=== PATIENT | female | born 1980 | race Caucasian/White ===

== ENCOUNTER 2023-05-25 09:50 | Outpatient (CLI) | payer BC, SELFPAY ==
[2023-05-25 08:47] LABS: Absolute Basophil Count 0.03 10^3/uL (0.0-0.2); Absolute Neutrophil Count 2.01 10^3/uL (1.2-6.7); Basophils % 0.8; Eosinophils % 2.8; HCT 39.8 % (36.0-46.0); Lymphocytes % 33.9; MCH 31.3 pg (27.0-33.0); MCHC 32.7 % (32.0-36.0); MCV 96 fL (80-95); Monocytes % 5.6; Neutrophils % 56.9; Platelet Count 216 10^3/uL (130-400); RBC 4.15 10^6/uL (3.93-5.22); RDW 12.7 % (11.7-14.6); RDW-SD 45.2 fL; WBC 3.54 10^3/uL (4.4-10.8)
[2023-05-25 09:19] LABS: ALT 20 U/L (14-59); AST 13 U/L (15-37); Albumin 3.6 g/dL (3.4-5.0); Alkaline Phosphatase 66 U/L (46-116); Anion Gap 7.9 mmol/L (3-11); BUN 8 mg/dL (7-18); Bilirubin, Total 0.5 mg/dL (0.2-1.0); CO2 28.1 mmol/L (21.0-32.0); CREATININE 0.9 mg/dL (0.55-1.02); Calcium 8.9 mg/dL (8.5-10.1); Calculated LDL 115 mg/dL (<100); Chloride 105 mmol/L (98-107); Cholesterol 213 mg/dL (<200); Estimated GFR 80.34 (mL/min/1.73m2); Glucose 91 mg/dL (74-106); HDL Cholesterol 86 mg/dL (40-60); Potassium 4.3 mmol/L (3.5-5.1); Sodium 141 mmol/L (136-145); Total Protein 7.2 g/dL (6.4-8.2); Triglyceride 63 mg/dL (<150)
[2023-05-25 19:38] LABS: HIV-1/2 Ag & Ab Screen Negative (Negative)
[2023-05-25 19:40] LABS: Hepatitis C Ab w Rflx HCV PCR Negative (Negative)
== END 2023-05-25 09:51 | disposition home or self-care (01) ==
LOC: LBO 09:50
PROVIDERS: PCP Nurse Practitioner Family; Visit Provider Nurse Practitioner Family
DX: Z13.220 Encounter for screening for lipoid disorders (principal); Z11.4 Encounter for screening for human immunodeficiency virus [HIV]; R10.10 Upper abdominal pain, unspecified
CPT/HCPCS: 36415; 80053; 80061; 86803; 87389; 85025

== ENCOUNTER 2023-05-26 08:00 | Day surgery (SDC) | payer BC, SELFPAY ==
--- NOTE | 2023-05-25 12:03 | PDOC.DSDIS_ITS ---
Date of service: 05/26/23 Time of Service: 10:08 Discharge Plan Disposition Patient Disposition: Home Condition: Good Discharge Details Reason For Visit: stomach & colon scopes Attending Provider: Katia Mcdowell Primary Care Provider: Santiago Cramer Home Meds and New Rx's Prescriptions: Discontinued polyethylene glycol 3350 17 gram/dose powder 238 g PO ONCE Qty: 238 0RF Rx Instructions: take per colonoscopy instructions bisacodyl [Dulcolax (bisacodyl)] 5 mg tablet,delayed release (DR/EC) 5 mg PO ONCE Qty: 4 0RF Rx Instructions: take per colonoscopy instructions No Action No Known Home Meds Discharge Instructions Additional Instructions: DSU Colonoscopy Post- Op Instructions Instructions for Everyone who is given Anesthesia: For your safety, please do the following for the next twenty-four (24) hours: *Do Not operate a motor vehicle (car, truck, motorcycle, etc.) *Do Not drink alcoholic beverages or use any recreational drugs for the first 24 hours or while taking pain medications. The medications in your body may have a reaction that can be dangerous. *Do Not make any important decisions or sign any important papers. Findings: Stomach and colon scopes were normal today Biopsies were taken today Follow up: -My office will send you a copy of the biopsy results in 2 to 3 weeks time -HIDA scan to follow-up on gallbladder functioning. The hospital will call you to schedule this appointment. 1. No lifting over 20 pounds or strenuous activity for the first 24 hours after your procedure. After 24 hours there are no restrictions on your activity but you may feel fatigued for a few days. 2. After you arrive home you may have a light meal and return to your normal diet as you can tolerate it without feeling sick to your stomach. 3. You may have a bloated, gaseous feeling in your belly (abdomen) after a colonoscopy. Passing gas and belching will help. Walking or lying down on your left side with your knees flexed may relieve the discomfort. Call the office at [phone] (Office) or [phone] (Hospital) right away if you notice any of the following: a.Vomiting of blood or ?coffee ground stools?. b.Rectal bleeding 1Tbsp, blood clots or continuous bleeding. c.Severe belly (abdominal) pain. d.A hard distended belly (abdomen) and an inability to pass gas. 4. Please don?t expect to have a normal BM (bowel movement) for 2-3 days after your procedure. 5. If there are questions regarding the findings of your procedure, please contact your doctor 6. If you are unable to contact your doctor with a problem, contact the hospital at [phone]. 7. Continue all your regular medications unless directed otherwise. I understand the above instructions and have no questions. Signature of Patient or Adult Escort Name of Responsible Adult Escort Signature of Nurse Date/Time Activity:: see above Diet:: see above Discharge Orders Discharge Orders: Discharge Order (Routine); Ordered 05/26/23 Ordered By: Katia Mcdowell DS: Diagnosis Discharge Diagnosis (1) Upper abdominal pain: Status: Acute (2) Epigastric pain: Status: Acute Asessment and Plan: Patient is seen and examined after they are endoscopy.? Patient has minimal sore throat.? They have been able to tolerate liquids.? They do not have any nausea vomiting.? They are not having any chest pain or shortness of breath.? They have been able to pass gas and are not having any abdominal pain or distention.? They have not vomited any blood.? The vital signs have been stable-see nursing notes. We discussed findings on their endoscopy. We reviewed the importance of lifestyle modification-see discharge instructions We reviewed any new medications that the patient may be prescribed-see discharge instructions Patient will either be sent a letter with the biopsy results or follow-up in the office-see discharge instructions. Patient was given explicit instructions to follow-up regarding post endoscopy- refer to discharge Patient verbalized understanding and discharged in stable and satisfactory condition.? See nursing notes.
--- NOTE | 2023-05-26 08:04 | W.ANESPRE ---
General Info Date of Service Date Performed: 05/26/23 Height: 5 ft 7 in Weight: 65.317 kg Body Mass Index (BMI): 22.5 Surgical Procedure: Operation Date: 05/26/23 09:05 Proposed Procedure Side Surgeon p Colonoscopy/Gastroscopy Katia Mcdowell, DO Meds Allergies and Home Medications Allergies Allergy/AdvReac Type Severity Reaction Status Date / Time No Known Allergies Allergy Verified 05/25/23 13:22 Home Medication Medication Instructions Recorded Unknown [No Known Home Meds] 05/25/23 Current Visit Medications: Current Medications Generic Name Dose Route Start Last Admin Trade Name Freq PRN Reason Stop Dose Admin Hyoscyamine Sulfate 0.125 mg 05/26/23 00:02 Hyoscyamine 0.125 Mg Sl/Oral/Chew SL 06/25/23 00:01 DIRECTED PRN Ringer's Solution 1,000 mls @ 80 mls/hr 05/26/23 06:00 IV 06/24/23 23:59 [facility] IV Miscellaneous Supplies 1 each 05/26/23 06:00 Iv Access IV 06/24/23 23:59 DIRECTED BRISA Ondansetron HCl 4 mg 05/26/23 00:02 Ondansetron 4 Mg/2 Ml Vial IVP 06/25/23 00:01 Q4H PRN PRN Nausea / Vomiting Sodium Chloride 0 ml 05/26/23 06:00 Normal Saline Flush 10 Ml Syr IV 06/24/23 23:59 PRN PRN Sodium Chloride 0 ml 05/26/23 06:00 Normal Saline 10 Ml Vial IJ 06/24/23 23:59 DIRECTED PRN Sterile Water 0 ml 05/26/23 06:00 Water,Injection,Sterile 10 Ml Vial IJ 06/24/23 23:59 DIRECTED PRN PFSH Active Problems Active Problems: Problem Status Onset Code Epigastric pain R10.13 Colon cancer screening Z12.11 Achilles tendon pain M76.60 Right shoulder pain M25.511 Upper abdominal pain R10.10 Tobacco Smoking/Tobacco Use Status: Never Passive smoking exposure: No Second hand exposure: No Alcohol Alcohol Intake: current Alcohol intake frequency: holidays/special occasions only Alcohol type: wine Substance Use Substance use: Never Substance use type: does not use Vital Signs and Lab Results Lab Results Blood Type / Crossmatch: No Data to Display Complete Blood Count: White Blood Count 3.54 10^3/uL (4.4-10.8) L 05/25/23 08:37 Red Blood Count 4.15 10^6/uL (3.93-5.22) 05/25/23 08:37 Hemoglobin 13.0 g/dL (11.2-15.7) 05/25/23 08:37 Hematocrit 39.8 % (36.0-46.0) 05/25/23 08:37 Platelet Count 216 10^3/uL (130-400) 05/25/23 08:37 Complete Metabolic Panel: Sodium 141 mmol/L (136-145) 05/25/23 08:37 Potassium 4.3 mmol/L (3.5-5.1) 05/25/23 08:37 Chloride 105 mmol/L (98-107) 05/25/23 08:37 Carbon Dioxide 28.1 mmol/L (21.0-32.0) 05/25/23 08:37 BUN 8 mg/dL (7-18) 05/25/23 08:37 Creatinine 0.9 mg/dL (0.55-1.02) 05/25/23 08:37 Est GFR (CKD-EPI 2020) 80.34 (mL/min/1.73m2) 05/25/23 08:37 Calcium 8.9 mg/dL (8.5-10.1) 05/25/23 08:37 Albumin 3.6 g/dL (3.4-5.0) 05/25/23 08:37 Glucose 91 mg/dL (74-106) 05/25/23 08:37 Liver Function Panel: Alanine Aminotransferase (ALT/SGPT) 20 U/L (14-59) 05/25/23 08:37 Aspartate Amino Transf (AST/SGOT) 13 U/L (15-37) L 05/25/23 08:37 Coagulation Panel: No Data to Display Cardiac Panel: No Data to Display Arterial Blood Gas: No Data to Display Venous Blood Gas: No Data to Display Pancreas Panel: No Data to Display Thyroid Panel: No Data to Display Infectious Disease: HIV (1&2) Ag and Ab, 4th Generation Negative (Negative) 05/25/23 08:37 Hepatitis C Antibody Negative (Negative) 05/25/23 08:37 Blood Cultures: No Data to Display Toxicology Panel: No Data to Display Panel: No Data to Display Anesthesia Assessment and Plan Anesthesia History Personal History: No History of Anesthesia Complications Family History: No Family History of Anesthesia Complications Exercise Tolerance Exercise Tolerance: Metabolic Equivalents>4 Pertinent Negatives Pertinent Negatives: No Symptoms of GERD, No Major Cardiovascular Symptoms or Complaints, No Major Pulmonary Symptoms or Complaints and No History of CVA/TIA Cardiac & Pulmonary Exam Cardiac Exam: Normal S1/S2 Heart Sounds Pulmonary Exam: Clear Bilateral Breath Sounds Implantable Cardiac Device Does patient have a Pacemaker or an ICD?: No Airway Exam Known Difficult Airway: No Mallampati Class: 2 Mouth Opening: Normal (> 3cm) Thyromental Distance: Greater than 3 cm Neck Range of Motion: Full ROM Neck Circumference: Normal Teeth Condition: Normal Dentition ASA Classification ASA Score: ASA 2 Emergency Case?: No NPO Status NPO Status: NPO Clears >2 hours, Solids >8 hours Status Status: Negative HCG Anesthesia Plan Resuscitation Status: Full Code Anesthesia Technique: General Anesthesia Airway Planned: Natural Airway Monitors Used: Standard Monitors
[2023-05-26 08:06] VITALS: BMI 22.5
[2023-05-26 08:14] VITALS: BP 112/70; PULSE 74; RESP 16; TEMP 36.5; O2SAT 100
[2023-05-26] MEDS: Lactated Ringers 1,000 ML 80 ML IV (08:28)
--- NOTE | 2023-05-26 09:29 | BOWEL_PTH ---
PATIENT: Gaby Santillan LOC: [facility] U#:[id number] AGE/SX: 43/F ROOM: RE05/26/[address]: Katia Mcdowell : 1980 BED: DIS: 05/26/2023 SPEC #: [id number] RECD: 05/26/23 13:08 STATUS: CATHERINE FULTON #: [id number] JOSS: 05/26/23 09:[address]: Katia Mcdowell DEPT: Surgical Specimen RECD BY: Mylene Vidal ENTERED: 05/26/23 13:10 SP TYPE: Bowel OTHR DR: Santiago Vines, GALILEA Tissues: 1 - BIOPSY BOWEL 2 - BIOPSY BOWEL 3 - STOMACH BIOPSY 4 - STOMACH BIOPSY 5 - ESOPHAGUS BIOPSY 6 - ESOPHAGUS BIOPSY 7 - BIOPSY BOWEL 8 - BIOPSY BOWEL 9 - BIOPSY BOWEL Procedures: GROSS AND MICRO LEVEL 4 IMMUNOPEROXIDASE STAIN Comments: [id number]
[2023-05-26 10:02] VITALS: BP 96/74; PULSE 77; RESP 16; TEMP 36.6; O2SAT 99
--- NOTE | 2023-05-26 10:10 | ENDO_ITS ---
Date of service: 05/26/23 Time of Service: 10:10 Endoscopy Report DATE OF PROCEDURE: 05/26/23 PRE-OP DIAGNOSIS: Epigastric pain POST-OP DIAGNOSIS: same SURGEON: Katia Mcdowell ANESTHESIA TYPE: General:No Airway ESTIMATED BLOOD LOSS: 2 PATHOLOGY: other COMPLICATIONS: None DISPOSITION: same day PROCEDURE DESCRIPTION: After informed consent was obtained the patient was take to the procedure room and placed in a supine position. Monitors were applied and a time out was done. The patients name, date of , procedure type, allergies to medications and metal in their body was reviewed. A bite block was placed and the patient was sedated. Once sedated and comfortable the gastroscope was advanced through the oropharynx which was grossly normal into the esophagus. The proximal and mid- esophagus were normal. In the distal esophagus there was no: Esophageal ero sions/varices/diverticula or stenosis. The scope was advanced into the stomach and through the pylorus into the 3rd portion of the duodenum. The duodenum was noted to be normal. Biopsies were done, all specimen is retrieved and no bleeding is noted. The scope was retracted back into the stomach and biopsies were done to rule out H. pylori. There were no gastritis or ulcers. The scope was retroflexed. The cardia and fundus were noted to be normal. There no a hiatal hernia noted. The scope was retracted back into the esophagus and biopsies were done of the GE junction to rule out Sierra's. The Z line was regular. The GE junction was at 38 cm. The scope was removed and we proceeded onto the colonoscopy.
--- NOTE | 2023-05-26 10:12 | COLE_ITS ---
Date of service: 05/26/23 Time of Service: 10:12 Colonoscopy Report Date of procedure: 05/26/23 Pre-op diagnosis general: Colorectal cancer screening Post-op diagnosis procedure note: same Surgeon: Katia Mcdowell Anesthesia Type: General:No Airway Estimated blood loss (mL): 1 Pathology: other Complications: None Disposition: same day Prep: Miralax/Dulcolax Retraction Time: 10 Procedure Description: After informed consent was obtained the patient was taken to the procedure room and placed in a left decubitous position. Monitors were applied and a time out was done. The patients name, date of , procedure, allergies to medications and metal in their body was reviewed. The patient was then sedated. Once sedated and comfortable a rectal exam was done. External exam was normal. Internal exam revealed a normal sphincter tone and no palpable masses. The scope was then introduced and retrofelexed. No internal hemorrhoids were identified. The scope was then advanced to the cecum without difficulty. The TI and appendiceal orifice were identified. The scope was then slowly retracted over 10 minutes back into the rectum. There are no polyps/AVM/diverticula visualized today.. The mucosa is pink and healthy with a normal vascular pattern. Biopsies are taken at 70 cm / 30 cm and rectum. All specimen is retrieved and no bleeding is noted. The scope was removed and the patient was woken up and taken back to Same day surgery in stable condition. The patient tolerated the procedure well and there were no immediate complications. Follow up: The patient should follow up in 10 years unless they develop changes in bowel habits or other new gastrointestinal complaints. [place] Bowel Prep [place] Bowel Prep Right Colon: 3 Left Colon: 3 Transverse Colon: 3 Total Score: 9
[2023-05-26 10:30] VITALS: BP 110/67; PULSE 73; RESP 16; TEMP 36.3; O2SAT 100
--- NOTE | 2023-05-26 10:44 | W.ANESPOSTOP ---
Postoperative Evaluation Date, Time and Location Date Performed: 05/26/23 Time Performed: 10:15 Patient Location: Day Surgery Unit Vital Signs Most Recent Imported Vital Signs: Most Recent Vital Signs Temp Pulse Resp BP Pulse Ox 36.3 C L 73 16 110/67 100 05/26/23 10:30 05/26/23 10:30 05/26/23 10:30 05/26/23 10:30 05/26/23 10:30 Pain Score Most Recent Pain Score: Most Recent Pain Score Pain Level 0 05/26/23 10:30 Assessment Mental Status: Awake (Alert & Oriented to Patient Baseline) Airway and Respiratory Function: Patent airway with normal (patient baseline) respiratory exam Cardiovascular Function: Hemodynamically Stable Hydration Status: Adequately Hydrated Nausea & Vomiting: No Nausea or Vomiting Pain: Pt. Denies Any Pain Peripheral Nerve Block: Patient did not receive a nerve block
== END 2023-05-26 10:44 | disposition home or self-care (01) ==
LOC: SUR 08:00
PROVIDERS: PCP Nurse Practitioner Family; Visit Provider Surgery
PROC: (CPT 45380; principal; 2023-05-26 09:00)
DX: Z12.11 Encounter for screening for malignant neoplasm of colon (principal); R10.13 Epigastric pain
CPT/HCPCS: 45380; 43239; 81025; 88305; 88361; J2704

== ENCOUNTER → 2023-06-03 02:57 | Outpatient (CLI) | payer BC, SELFPAY ==
--- NOTE | 2023-06-03 08:20 | DI.MAMMO_ITS ---
Exam(s) MAMMO SCREENING EXAM: MAMMO SCREENING CLINICAL HISTORY: screening,Z12.39. TECHNIQUE: Bilateral full field digital CC and MLO mammographic images were obtained with 3D tomosyn thesis and utilizing computer aided detection (CAD). COMPARISON: None. This is a baseline mammogram on this 43-year-old. FINDINGS: Fibroglandular tissue pattern is moderately dense, this somewhat decreasing the sensitivity of the ma mmogram for finding hidden underlying lesions. There are no obvious spiculated masses nor malignant appearing microcalcification groups. There is no significant architectural distortion nor skin thickening-retraction. IMPRESSION: Dense bilateral fibroglandular tissue. No obvious radiographic evidence of malignancy. BI-RADS Category 1 - Negative Breast Density - Category C - Heterogeneously dense Breast density Category C or D implies that the patient has dense breast tissue. Dense breast tissue can make it harder to find cancer on a mammogram. Dense breast tissue is also associated with an incr eased risk of breast cancer. This information about the result of the mammogram report was provided to the patient to raise their awareness. Use this report when you speak with the patient about their risks for breast cancer, which includes their family history. At that time, you may recommend additional screening tests (Ultrasoun d or MRI) as these tests may add significant information. A negative radiographic report should not delay biopsy if a dominant or clinically suspicious mass is present. Up to ten percent of cancers are not identified on mammography. A negative report may reinforce clinical impression. Adenosis and dense breasts may obscure an underlying neoplasm. False positive reports average 6 to 10%. Patient will receive a letter notifying them of these results.
== END ==
PROVIDERS: PCP Nurse Practitioner Family; Visit Provider Nurse Practitioner Family
DX: Z12.31 Encounter for screening mammogram for malignant neoplasm of breast (principal)
CPT/HCPCS: 77063; 77067

== ENCOUNTER → 2023-07-31 02:03 | Outpatient (CLI) | payer BC, SELFPAY ==
--- NOTE | 2023-07-31 07:30 | DI.MRI_ITS ---
Exam(s) MR UPPER JOINT RT WO EXAM: MR UPPER JOINT RT WO CLINICAL HISTORY: no improvement with PT, rt shoulder pain, M25.511. TECHNIQUE: Multiplanar multisequence MRI was performed. COMPARISON: No exams were available for comparison FINDINGS: BONES: There is no fracture or contusion pattern. JOINTS: The acromioclavicular joint is normal. The glenohumeral joint is normal. Small subchondral cy sts are seen in the greater tuberosity. TENDONS: Supraspinatus: Unremarkable. Infraspinatus: Unremarkable. Subscapularis: Unremarkable. Teres Minor: Unremarkable. Biceps and Trezevant: Unremarkable. MUSCLES: Unremarkable. GLENOID LABRUM: Unremarkable on this noncontrast examination. SOFT TISSUES: Unremarkable. LIGAMENTS: Unremarkable. OTHER: Subacromial and subdeltoid bursae are unremarkable. IMPRESSION: No evidence of a rotator cuff or labral tear on this noncontrast examination. DATA REPOSITORY:
--- NOTE | 2023-07-31 07:30 | DI.MRI_ITS ---
Exam(s) MR LOWER JOINT RT WO EXAM: MR LOWER JOINT RT WO CLINICAL HISTORY: worse with PT, achilles tendon pain, M76.60 TECHNIQUE: Multiplanar multisequence MRI was performed without intravenous contrast. COMPARISON: No exams were available for comparison FINDINGS: BONES/JOINTS: No fracture or contusion pattern. No bone lesions identified. The talar dome is smooth. The ankle mortise is maintained. No joint effusion is present. LIGAMENTS: The tibiofibular and calcaneofibular ligaments are intact. The talofibular ligaments are i ntact. The deltoid ligament is intact. The syndesmosis is unremarkable. Sinus tarsi is normal. MUSCULOTENDINOUS STRUCTURES: Achilles tendon: The mid Achilles tendon is thickened and shows mild increased signal. No evidence o f a full-thickness tear. No surrounding edema is seen. Plantar fascia: Unremarkable. Anterior Extensor tendons: Unremarkable. Posterior Tibialis: Unremarkable. Flexor Digitorum longus: Unremarkable. Flexor Hallucis longus: Unremarkable. Peroneus longus: Unremarkable. Peroneus brevis:Unremarkable. SOFT TISSUES: Unremarkable. OTHER FINDINGS: None. IMPRESSION: Thickening and mild increased signal seen in the Achilles tendon. Suspicious for Achilles tendinitis . No evidence of a full-thickness tear. DATA REPOSITORY:
== END ==
PROVIDERS: PCP Nurse Practitioner Family; Visit Provider Nurse Practitioner Family
DX: M25.511 Pain in right shoulder (principal); M76.61 Achilles tendinitis, right leg
CPT/HCPCS: 73721; 73221

== ENCOUNTER 2023-08-12 13:58 | Outpatient (REF) | payer BC, SELFPAY ==
--- NOTE | 2023-08-12 10:45 | SKI_PTH ---
PATIENT: Gaby Santillan LOC: [facility] U#:[id number] AGE/SX: 43/F ROOM: RE08/12/[address]: Santiago Vines DNP : 1980 BED: DIS: 08/12/2023 SPEC #: [id number] RECD: 08/13/23 12:39 STATUS: CATHERINE REQ #: [id number] JOSS: 08/12/23 10:[address]: Santiago Cramer DEPT: Surgical Specimen RECD BY: Mylene Vidal Tissues: 1 - SKIN BIOPSY(SHAVE/PUNCH) Procedures: SKIN LEVEL 4 Comments: [id number]
== END 2023-08-12 13:59 | disposition home or self-care (01) ==
LOC: LBN 13:58
PROVIDERS: PCP Nurse Practitioner Family; Visit Provider Nurse Practitioner Family
DX: L82.0 Inflamed seborrheic keratosis (principal)
CPT/HCPCS: 88305

== ENCOUNTER 2024-05-20 15:56 | Outpatient (CLI) | payer BC, SELFPAY ==
--- NOTE | 2024-05-20 15:45 | RT.EKG_ITS ---
APPROVED REPORT Exam: Resting ECG Reason for Exam: screening Patient Location: O HR:73 bpm ECG Measurements Heart Rate 73 AXIS MA 152 P 73 QRSd 78 QRS 65 QT 371 T 59 QTc 409 Conclusion Sinus rhythm...normal P axis, V-rate 50- 99 Normal Electrocardiogram
== END 2024-05-20 15:57 | disposition home or self-care (01) ==
LOC: DI.CM 15:57
PROVIDERS: PCP Nurse Practitioner Family; Visit Provider Nurse Practitioner Family
DX: F90.9 Attention-deficit hyperactivity disorder, unspecified type (principal); Z13.6 Encounter for screening for cardiovascular disorders
CPT/HCPCS: 93010